=== PATIENT | male | born 1980 | race African-American/Black ===

== ENCOUNTER 2019-03-12 09:31 | Emergency (ER) | payer SELFPAY ==
[2019-03-12 09:39] VITALS: BP 147/98
--- NOTE | 2019-03-12 10:21 | ED Physician Documentation ---
PD HPI HEENT - Stated complaint Stated Complaint: LT EAR PX - Chief complaint Chief Complaint: Heent - History obtained from History obtained from: Patient - History of Present Illness Timing - onset: How many days ago (4) Timing - duration: Days (4) Timing - details: Gradual onset, Still present Location: Left ear. No: Right ear, Sinuses, Nose, Throat, Tooth Associated symptoms: No: Fever, Congestion, Facial swelling Recently seen: Not recently seen - Additional information Additional information: There is a 38-year-old man who presents with complaints that his left ear is been swollen and had diminished hearing and it painful for the past 4 days. It hurts to tug on it or put any pressure on it. Is not been draining anything. He has not had a sore throat or stuffy nose. He does have a history of swimmer's ear. He does not know if he had a fever but has had chills. He took 2 Advil yesterday that helped a little bit. No nausea or vomiting. He works as a aluminum welder. Review of Systems Constitutional: reports: Chills. denies: Fever Ears: reports: Loss of hearing, Ear pain Nose: denies: Congestion Throat: denies: Sore throat PD PAST MEDICAL HISTORY - Present Medications Home Medications: Ambulatory Orders Medication Instructions Recorded Confirmed Hydrocodone/Acetaminophen 1 - 2 each PO Q6H PRN #6 tablet 03/12/19 [Hydrocodon-Acetaminophen 5-325] Neomycin/Polymyx/Hc Otic Drops 4 drops OT TID #1 bottle 03/12/19 [Cortisporin Ear Susp] - Allergies Allergies/Adverse Reactions: Allergies Allergy/AdvReac Type Severity Reaction Status Date / Time No Known Drug Allergies Allergy Verified 03/12/19 09:39 PD ED PE NORMAL - Vitals Vital signs reviewed: Yes - General General: Alert and oriented X 3, No acute distress, Well developed/nourished - HEENT HEENT: Atraumatic, PERRL, Moist mucous membranes, Other (The right ear canal is normal and the TM is normal. The left ear has swelling of the tragus and the External auditory canal there is no active drainage but it is almost swollen shut. There are no pre-or postauricular nodes and no mastoid tenderness.) - Respiratory Respiratory: No respiratory distress Results - Vitals Vitals: Vital Signs - 24 hr 03/12/19 09:37 Temperature 36.7 C Heart Rate 78 Respiratory 16 Rate Blood Pressure 147/98 H O2 Saturation 97 Oxygen O2 Source Room air PD MEDICAL DECISION MAKING - ED course Complexity details: d/w patient ED course: Patient was placed on Cortisporin otic drops and instructed on their use. He should use Advil [id number] for pain and as an anti-inflammatory [place] for the next 2 to 3 days. He was given a prescription for 6 hydrocodone tablets to help with the more acute pain until the antibiotic becomes effective. Follow-up with primary care provider if he is not improving. Departure - Departure Disposition: Home, Self Care Clinical Impression: Otitis externa Qualifiers: Otitis externa type: swimmer's ear Chronicity: acute Laterality: left Qualified Code(s): H60.332 - Swimmer's ear, left ear Condition: Good Instructions: ED Otitis Externa Follow-Up: [facility] [Provider Group] Prescriptions: Hydrocodone/Acetaminophen [Hydrocodon-Acetaminophen 5-325] 1 - 2 each PO Q6H PRN #6 tablet PRN Reason: pain Neomycin/Polymyx/Hc Otic Drops [Cortisporin Ear Susp] 4 drops OT TID #1 bottle Comments: Use the Cortisporin otic drops 4 times a day. Cottonball right inside the ear to prevent any water or anything getting into the ear when you are in the shower. Do not use ear buds. Take ibuprofen 4 tablets every 8 hours with food for the next 2 to 3 days. There is a prescription for hydrocodone if you need to take something stronger for the pain for the next [address] machinery if you use the hydrocodone.
== END 2019-03-12 10:54 | disposition home or self-care (01) ==
LOC: ED 09:31
DX: H60.332 Swimmer's ear, left ear (principal)
CPT/HCPCS: 99282; 99283